=== PATIENT | male | born 1975 | race Caucasian/White ===

== ENCOUNTER 2018-07-16 11:03 | Emergency (ER) | payer OTHER ==
[~2018-07-16] VITALS: Ht 175.2 cm; Wt 66.7 kg
[2018-07-16] MEDS ORDERED: Motrin,Rufen800 MG PO (14:01)
== END 2018-07-16 14:15 | disposition home or self-care (01) ==
LOC: ED 11:03
DX: S83.92XA Sprain of unspecified site of left knee, initial encounter (principal); F17.200 Nicotine dependence, unspecified, uncomplicated; V80.010A Animal-rider injured by fall from or being thrown from horse in noncollision accident, initial encounter; Y93.89 Activity, other specified; Y92.89 Other specified places as the place of occurrence of the external cause; Y99.8 Other external cause status

== ENCOUNTER 2021-07-01 21:48 | Emergency (ER) | payer MEDICAID ==
[~2021-07-01 21:48] MED LIST: Motrin,Rufen800 MG PO
== END 2021-07-01 23:45 | disposition left against medical advice (07) ==
LOC: ED 21:48
DX: Z53.21 Procedure and treatment not carried out due to patient leaving prior to being seen by health care provider (principal)